=== PATIENT | male | born 1990 | race American Indian/Alaskan Native ===

== ENCOUNTER 2016-10-29 15:55 | Emergency (ER) | payer OTHER ==
[2016-10-29 15:59] VITALS: BP 160/80; PULSE 78; RESP 20; TEMP 98.7; O2SAT 100
--- NOTE | 2016-10-29 16:13 | ED PDOC ---
HPI: General Adult Time Seen by Provider: 10/29/16 16:04 Chief Complaint (Nursing): Medical Clearance Chief Complaint (Provider): Denies complaint History Per: Patient History/Exam Limitations: no limitations Onset/Duration Of Symptoms: Days Have you had recent travel within the past 21 days to any of the following countries: [place], [place], [place] or [place]?: No Current Symptoms Are (Timing): Still Present Additional Complaint(s): Pt brought to ER for "medical clearance for incarceration" by [employer]. Pt denies medical or psychiatric complaint. Pt states he does now know why he was brought to the ER. Police states he has not made any complaints while with them. Past Medical History Reviewed: Historical Data, Nursing Documentation, Vital Signs Vital Signs: Last Vital Signs Temp 98.7 F 10/29/16 15:57 Pulse 78 10/29/16 15:57 Resp 20 10/29/16 15:57 BP 160/80 H 10/29/16 15:57 Pulse Ox 100 10/29/16 15:57 - Medical History PMH: No Chronic Diseases - Surgical History Surgical History: No Surg Hx - Family History Family History: States: No Known Family Hx - Living Arrangements Living Arrangements: Other - Social History Current smoker - smoking cessation education provided: No Alcohol: None Drugs: Denies - Allergies Allergies/Adverse Reactions: Allergies Allergy/AdvReac Type Severity Reaction Status Date / Time No Known Allergies Allergy Verified 10/29/16 15:56 Physical Exam - Reviewed Nursing Documentation Reviewed: Yes Vital Signs Reviewed: Yes - Physical Exam Appears: Positive for: Well, Non-toxic, No Acute Distress Head Exam: Positive for: ATRAUMATIC, NORMAL INSPECTION, NORMOCEPHALIC Skin: Positive for: Normal Color, Warm, DRY Eye Exam: Positive for: Normal appearance, PERRL ENT: Positive for: Normal ENT Inspection Neck: Positive for: Normal, Painless ROM Cardiovascular/Chest: Positive for: Regular Rate, Rhythm Respiratory: Positive for: CNT, Normal Breath Sounds Gastrointestinal/Abdominal: Positive for: Normal Exam, Bowel Sounds, Soft Back: Positive for: Normal Inspection Extremity: Positive for: Normal ROM Neurologic/Psych: Positive for: Alert, Oriented - ECG O2 Sat by Pulse Oximetry: 100 Medical Decision Making Medical Decision Making: Crisis evaluation completed. Disposition - Clinical Impression Clinical Impression: Adjustment disorder - Patient ED Disposition Is Patient to be Admitted: No - Disposition Referrals: [facility] [Outside] Disposition: Routine/Home Disposition Time: 16:13 Condition: GOOD Additional Instructions: Pt is medically and psychiatrically stable for incarceration. Instructions: Stress (ED)
== END 2016-10-29 17:11 | disposition home or self-care (01) ==
LOC: H.ER 15:55
DX: F43.20 Adjustment disorder, unspecified (principal); Z00.8 Encounter for other general examination; Z02.89 Encounter for other administrative examinations